=== PATIENT | female | born 1975 | race Caucasian/White ===

== ENCOUNTER 2019-01-22 09:35 | Outpatient (CLI) | payer OTHER | END 2019-01-22 23:59 | disposition home or self-care (01) | LOC: STAR 09:35 | PROVIDERS: ATTEND Obstetrics & Gynecology | DX: Z01.818 Encounter for other preprocedural examination (principal); N92.0 Excessive and frequent menstruation with regular cycle; D64.9 Anemia, unspecified; Z88.1 Allergy status to other antibiotic agents | CPT/HCPCS: 36415; 81003; 81025; 85025 ==

== ENCOUNTER 2019-01-26 05:42 | Day surgery (SDC) | payer OTHER ==
[~2019-01-26] VITALS: Ht 162.6 cm; Wt 72.1 kg
[2019-01-26 06:37] VITALS: BP 152/88
== END 2019-01-26 18:00 | disposition home or self-care (01) ==
LOC: OUT 05:42
PROVIDERS: ATTEND Obstetrics & Gynecology
DX: N72 Inflammatory disease of cervix uteri (principal); N87.9 Dysplasia of cervix uteri, unspecified; N83.8 Other noninflammatory disorders of ovary, fallopian tube and broad ligament; D64.9 Anemia, unspecified; Z72.89 Other problems related to lifestyle; Z79.899 Other long term (current) drug therapy; Z88.1 Allergy status to other antibiotic agents; Z80.3 Family history of malignant neoplasm of breast; Z82.3 Family history of stroke
CPT/HCPCS: 36415; 58552; 81025; 85025; 86850; 86900; 88307; J0690; J1100; J1170; J1885; J2250; J2405; J2704; J2710; J3010; J7120